=== PATIENT | male | born 1965 | race Two or more races ===

== ENCOUNTER 2024-07-08 08:09 | Outpatient (CLI) | payer OTHER | END 2024-07-08 08:15 | disposition home or self-care (01) | LOC: SONOGRAMA 08:09 | PROVIDERS: ATTEND Pathology Anatomic Pathology & Clinical Pathology | DX: D44.0 Neoplasm of uncertain behavior of thyroid gland (principal); E04.1 Nontoxic single thyroid nodule ==

== ENCOUNTER 2024-08-27 07:17 | Outpatient (CLI) | payer OTHER | END 2024-08-27 07:18 | disposition home or self-care (01) | LOC: NUCLEAR 07:17 | DX: E07.9 Disorder of thyroid, unspecified (principal); C73 Malignant neoplasm of thyroid gland ==